=== PATIENT | female | born 1995 | race Caucasian/White ===

== ENCOUNTER 2017-04-04 23:38 | Inpatient (IN) | payer OTHER ==
[~2017-04-04] VITALS: Ht 167.6 cm; Wt 54.8 kg
[2017-04-04] MEDS ORDERED: ONDANSETRON INJ 2 MG/ML 2 ML VIAL IV STA (23:49)
[2017-04-04] MEDS ORDERED: MoRPHine SULFATE 10 MG/ML CARP/VIAL IV STA (23:49)
[2017-04-04] MEDS ORDERED: MoRPHine SULFATE 2 MG/ML CARP ONE (23:55)
[2017-04-04] MEDS ORDERED: MoRPHine SULFATE 4 MG/ML 1 ML CARP\\VIAL ONE (23:55)
--- NOTE | 2017-04-04 23:57 | EMERGENCY ROOM VISIT NOTE ---
History Report prepared by Dwayne: Kashif Finley Under the Supervision of: Dr. Lorne Gardner M.D. 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 She states that she has had abdominal pain, though not this severe. She states the pain is in her epigastric region and RUQ. She currently rates her pain a 10/10 in severity. She notes nausea, vomiting, and back pain. She denies any history of gall bladder problems or gastric ulcers. She states that she had one beer this evening. She denies any leg swelling or rashes. She took Zantac and six Tums, though she vomited them back up. She regularly takes control. The patient has a history of UTI and kidney infections. She also notes a history of stomach problems, though she has not had any definite diagnoses. 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 She denies any leg swelling. Review of Systems See HPI for pertinent positives & negatives. A total of 10 systems reviewed and were otherwise negative. Past Medical & Surgical Medical Problems: (1) Kidney infection (2) Stomach problems (3) UTI (urinary tract infection) Family History FHx: cancer FHx: gallbladder disease FHx: heart disease Hypertension Kidney disease Kidney stones Social History Smoking Status: Never Smoker Smokeless Tobacco Use: No Alcohol Use: occasionally Housing Status: lives with roommate Occupation Status: student Current/Historical Medications Scheduled Control Pills ( Control Pills), 1 TAB PO DAILY Ferrous Sulfate (Iron), 325 MG PO DAILY Allergies Coded Allergies: Penicillins (Verified Allergy, Unknown, unknown, 04/04/17) Sulfa Antibiotics (Verified Allergy, Unknown, ananphylaxis, 04/04/17) Physical Exam Vital Signs Date Time Temp Pulse Resp B/P (MAP) Pulse Ox O2 Delivery O2 Flow Rate FiO2 04/05/17 00:50 82 18 109/74 100 Room Air 04/04/17 23:42 36.8 102 20 117/81 100 Room Air Physical Exam GENERAL: Patient is uncomfortable appearing and in moderate distress. crying HEENT: No acute trauma, normocephalic atraumatic, mucous membranes moist, no nasal congestion, no scleral icterus. NECK: No stridor, no adenopathy, no meningismus, trachea is midline. LUNGS: No dyspnea. Clear to auscultation and equal bilaterally. No wheeze, no rhonchi. HEART: Tachycardic. No murmurs, rubs, gallops appreciated. ABDOMEN: Soft, bowel sounds positive, no masses appreciated, no peritonitis. Moderate epigastric and RUQ tenderness to palpation. BACK: No midline tenderness, no CVA tenderness EXTREMITIES: Normal motion all extremities, no cyanosis, no edema. NEUROLOGIC: Alert and oriented, no acute motor or sensory deficits, no focal weakness, cranial nerves grossly intact. SKIN: No rash, no jaundice, no diaphoresis. Medical Decision & Procedures ER Provider Diagnostic Interpretation: Radiology results and stated below per my review and radiologist interpretation: [facility] Read: Acute Cholecystitis. Laboratory Results 04/04/17 00:08 Red Blood Count 4.40, Mean Corpuscular Volume 84.8, Mean Corpuscular Hemoglobin 27.7, Mean Corpuscular Hemoglobin Concent 32.7, Mean Platelet Volume 10.7, Neutrophils (%) (Auto) 63.4, Lymphocytes (%) (Auto) 31.8, Monocytes (%) (Auto) 3.3, Eosinophils (%) (Auto) 1.2, Basophils (%) (Auto) 0.2, Neutrophils # (Auto) 5.36, Lymphocytes # (Auto) 2.69, Monocytes # (Auto) 0.28, Eosinophils # (Auto) 0.10, Basophils # (Auto) 0.02 04/04/17 00:08 Test 04/04/17 00:08 White Blood Count 8.46 K/uL (4.8-10.8) Red Blood Count 4.40 M/uL (4.2-5.4) Hemoglobin 12.2 g/dL (12.0-16.0) Hematocrit 37.3 % (37-47) Mean Corpuscular Volume 84.8 fL (80-100) Mean Corpuscular Hemoglobin 27.7 pg (25-34) Mean Corpuscular Hemoglobin Concent 32.7 g/dl (32-36) Platelet Count 244 K/uL (130-400) Mean Platelet Volume 10.7 fL (7.4-10.4) Neutrophils (%) (Auto) 63.4 % Lymphocytes (%) (Auto) 31.8 % Monocytes (%) (Auto) 3.3 % Eosinophils (%) (Auto) 1.2 % Basophils (%) (Auto) 0.2 % Neutrophils # (Auto) 5.36 K/uL (1.4-6.5) Lymphocytes # (Auto) 2.69 K/uL (1.2-3.4) Monocytes # (Auto) 0.28 K/uL (0.11-0.59) Eosinophils # (Auto) 0.10 K/uL (0-0.5) Basophils # (Auto) 0.02 K/uL (0-0.2) RDW Standard Deviation 41.6 fL (36.4-46.3) RDW Coefficient of Variation 13.5 % (11.5-14.5) Immature Granulocyte % (Auto) 0.1 % Immature Granulocyte # (Auto) 0.01 K/uL (0.00-0.02) Anion Gap 8.0 mmol/L (3-11) Est Creatinine Clear Calc Drug Dose 90.3 ml/min Estimated GFR () 112.7 Estimated GFR (Non- 97.3 BUN/Creatinine Ratio 17.7 (10-20) Calcium Level 9.1 mg/dl (8.5-10.1) Total Bilirubin 0.3 mg/dl (0.2-1) Direct Bilirubin < 0.1 mg/dl (0-0.2) Aspartate Amino Transf (AST/SGOT) 11 U/L (15-37) Alanine Aminotransferase (ALT/SGPT) 25 U/L (12-78) Alkaline Phosphatase 46 U/L (45-117) Total Protein 7.2 gm/dl (6.4-8.2) Albumin 3.6 gm/dl (3.4-5.0) Lipase 101 U/L (73-393) Laboratory results as reviewed by me. Medications Administered Medications (Trade) Dose Ordered Sig/Alvin Route Start Time Stop Time Status Last Admin Dose Admin Ondansetron HCl (Zofran Inj) 4 mg NOW STAT IV 04/04/17 23:49 04/04/17 23:50 DC 04/05/17 00:07 4 MG Morphine Sulfate (MoRPHine SULFATE INJ) 2 mg STK-MED ONCE .ROUTE 04/04/17 23:55 04/04/17 23:56 DC 04/05/17 00:07 2 MG Morphine Sulfate (MoRPHine SULFATE INJ) 4 mg STK-MED ONCE .ROUTE 04/04/17 23:55 04/04/17 23:56 DC 04/05/17 00:07 4 MG Ondansetron HCl (Zofran Inj) 4 mg NOW STAT IV 04/05/17 00:52 04/05/17 00:53 DC 04/05/17 01:02 4 MG Morphine Sulfate (MoRPHine SULFATE INJ) 2 mg STK-MED ONCE .ROUTE 04/05/17 00:57 04/05/17 00:58 DC 04/05/17 01:02 2 MG Morphine Sulfate (MoRPHine SULFATE INJ) 4 mg STK-MED ONCE .ROUTE 04/05/17 00:57 04/05/17 00:58 DC 04/05/17 01:02 4 MG Cefoxitin Sodium 2000 mg/Dextrose 60 ml @ 120 mls/hr NOW STAT IV 04/05/17 01:09 04/05/17 01:38 DC 04/05/17 01:27 120 MLS/HR Sodium Chloride 1,000 ml @ 75 mls/hr [id number] STAT IV 04/05/17 01:16 04/05/17 02:40 DC 04/05/17 01:29 75 MLS/HR ED Course 2346: The patient was evaluated in room B12B. A complete history and physical exam was performed. 0011: I reassessed the patient at this time. She is calming down and notes the pain is improving. She reports previous CT scans of her abdomen for other abdominal pains. 0100: I reassessed the patient at this time. She notes an allergy to Keflex; she states she had a fever after taking it, though she had an abscess at the same time. 0107: I spoke with Abhi Kinney PA-C. We discussed the patients case. The patient will be further evaluated. Medical Decision Differential: Cholecystitis, Gallbladder disfunction, Hepatic Disfunction, Gastritis/PUD, Pancreatitis, Aortic Pathology, amongst other pathologies entertained. 22 yr old female arrives in quite significant discomfort with moderate epi/ruq TTP. Given IV morphine and US obtained of GB. Lab unremarkable. Needed repeat morphine secondary to return of pain. US consistent with acute Cholecystitis and likely stone in GB neck. Question of CBD dilatation, however with normal bili/LFTs. Mefoxin given for Abx coverage. findings reviewed with patient. Gen surg consulted who brought her in for planned OR in am. Medication Reconcilliation Current Medication List: was personally reviewed by me Blood Pressure Screening Patient's blood pressure: Normal blood pressure Consults Time Called: 101 Consulting Physician: Abhi Kinney PA-C Returned Call: [phone] I spoke with Abhi Kinney PA-C. We discussed the patients case. The patient will be further evaluated. Impression Primary Impression: Acute cholecystitis Scribe Attestation The scribe's documentation has been prepared under my direction and personally reviewed by me in its entirety. I confirm that the note above accurately reflects all work, treatment, procedures, and medical decision making performed by me. Departure Information Dispostion Being Evaluated By Surgeon Referrals No Doctor, Assigned (PCP) Patient Instructions My [facility]
[2017-04-05] VITALS (8 sets, daily range): BP systolic 94–110; BP diastolic 59–72; PULSE 65–88; TEMP 36.6–37; O2SAT 94–100; Ht 167.6 cm; Wt 54.8 kg
[2017-04-05 00:19] LABS: BASO % 0.2 %; BASO ABS # 0.02 K/uL (0-0.2); EOS % 1.2 %; HEMATOCRIT 37.3 % (37-47); HEMOGLOBIN 12.2 g/dL (12.0-16.0); IG# 0.01 K/uL (0.00-0.02); LYMPH % 31.8 %; LYMPH ABS # 2.69 K/uL (1.2-3.4); MEAN CELL VOLUME 84.8 fL (80-100); MEAN CORPUSCULAR HEMOGLOBIN 27.7 pg (25-34); MEAN CORPUSCULAR HGB CONC 32.7 g/dl (32-36); MEAN PLATELET VOLUME 10.7 fL (7.4-10.4); MONO % 3.3 %; MONO ABS # 0.28 K/uL (0.11-0.59); NEUT % 63.4 %; NEUT ABS # 5.36 K/uL (1.4-6.5); PLATELET COUNT 244 K/uL (130-400); RED CELL DISTRIBUTION WIDTH CV 13.5 % (11.5-14.5); RED CELL DISTRIBUTION WIDTH SD 41.6 fL (36.4-46.3); WHITE BLOOD COUNT 8.46 K/uL (4.8-10.8)
[2017-04-05 00:37] LABS: ALBUMIN 3.6 gm/dl (3.4-5.0); ALT/SGPT 25 U/L (12-78); AST/SGOT 11 U/L (15-37); BLOOD UREA NITROGEN 15 mg/dl (7-18); CALCIUM 9.1 mg/dl (8.5-10.1); CARBON DIOXIDE 24 mmol/L (21-32); CREATININE 0.86 mg/dl (0.60-1.20); GLUCOSE 100 mg/dl (70-99); LIPASE 101 U/L (73-393); POTASSIUM 3.4 mmol/L (3.5-5.1); SODIUM 137 mmol/L (136-145)
[2017-04-05 00:39] LABS: ALKALINE PHOSPHATASE 46 U/L (45-117); TOTAL PROTEIN 7.2 gm/dl (6.4-8.2)
[2017-04-05] MEDS ORDERED: ONDANSETRON INJ 2 MG/ML 2 ML VIAL IV STA (00:52)
[2017-04-05] MEDS ORDERED: MoRPHine SULFATE 10 MG/ML CARP/VIAL IV STA (00:52)
[2017-04-05] MEDS ORDERED: CEFOXITIN 2000MG/60 ML D5W IV STA (00:57)
[2017-04-05] MEDS ORDERED: MoRPHine SULFATE 2 MG/ML CARP ONE (00:57)
[2017-04-05] MEDS ORDERED: MoRPHine SULFATE 4 MG/ML 1 ML CARP\\VIAL ONE (00:57)
[2017-04-05] MEDS ORDERED: CEFOXITIN IV 2,000 MG in DEXTROSE 5% 50ML 50 ML IV STA (01:09)
[2017-04-05] MEDS ORDERED: SODIUM CHLORIDE 0.9% 1000ML 1,000 ML IV STA (01:16)
[2017-04-05] MEDS ORDERED: BCPILLS PO (01:21)
[2017-04-05] MEDS ORDERED: FERR1TAB23 PO (01:22)
[2017-04-05] MEDS ORDERED: HYDROmorphone INJ 1 MG/ML SYR IV PRN ×2 (01:30→02:30)
--- NOTE | 2017-04-05 02:16 | Medical Consult ---
Consultation Date of Consultation: Apr 05, 2017. Attending Physician: Reason for Consultation: RUQ pain History of Present Illness Patient presents to the ED tonight due to RUQ pain which started while she was on her way home from a alliance party this evening. States she ate a fatty meal and she started to have severe RUQ pain. Denies shoulder pain, but does feel some pain wrapping around to her back. States her pain is greatly improved since receiving morphine in the ED. Reports no nausea since she was given zofran here as well. Reports episodes like this in the past that subsided but not as severe. Reports she takes Tums on a regular basis and thought this pain was due to that. Reports Nausea and vomiting as well. No hematemesis. She has been moving her bowels and urinating without issue. States she takes Iron supplements and control pills but denies other medications. FHx of gallbladder disease (mother). Denies any previous abdominal surgeries. RUQ U/S reveals distended gallbladder with gallstones with one that appears non-mobile within the gallbladder neck. No gallbladder wall thickening, trace pericholecystic fluid and positive sonographic jimenez's sign. CBD mildly prominent at 7mm. No leukocytosis. LFTs WNL. Patient does have a listed allergy to penicillins however she reports that the symptoms of this allergy were just a fever while she was on penicillin for an active abscess. Past Medical/Surgical History Medical Problems: (1) Acute cholecystitis Status: Acute Family History FHx: cancer FHx: gallbladder disease FHx: heart disease Hypertension Kidney disease Kidney stones Social History Smoking Status: Never Smoker Smokeless Tobacco Use: No Housing Status: lives with roommate Occupation Status: student Allergies Coded Allergies: Penicillins (Verified Allergy, Unknown, unknown, 04/04/17) Sulfa Antibiotics (Verified Allergy, Unknown, ananphylaxis, 04/04/17) Current Inpatient Medications Current Inpatient Medications Medications (Trade) Dose Ordered Sig/Alvin Route Start Time Stop Time Status Last Admin Dose Admin Hydromorphone HCl (Dilaudid Inj) 1 mg Q30M PRN IV 04/05/17 01:30 04/19/17 01:29 Sodium Chloride 1,000 ml @ 75 mls/hr [id number] STAT IV 04/05/17 01:16 04/05/17 14:35 04/05/17 01:29 75 MLS/HR Review of Systems Constitutional: No fever, No chills Respiratory: No shortness of breath Cardiovascular: No chest pain Abdomen: + pain, + nausea, + vomiting Genitourinary - Female: No dysuria Integumentary: No color change Physical Exam Date Time Temp Pulse Resp B/P (MAP) Pulse Ox O2 Delivery O2 Flow Rate FiO2 04/05/17 00:50 82 18 109/74 100 Room Air 04/04/17 23:42 36.8 102 20 117/81 100 Room Air General Appearance: WD/WN, no apparent distress Head: normocephalic, atraumatic Eyes: funduscopic exam normal ENT: hearing grossly normal Neck: trachea midline Respiratory/Chest: lungs clear, normal breath sounds, no respiratory distress, no accessory muscle use Cardiovascular: regular rate, rhythm, no edema, no murmur Abdomen/GI: normal bowel sounds, soft, no organomegaly, no pulsatile mass, + tenderness (RUQ Mild (post morphine)) Neurologic/Psych: alert, normal mood/affect, oriented x 3 Skin: normal color, warm/dry Assessment & Plan RUQ pain, nausea and vomiting, symptomatic cholelithiasis, possible cholecystitis on RUQ U/S Based on history, PE and imaging, Gallbladder most likely etiology. Will plan for laparoscopic cholecystectomy with possible intraoperative cholangiogram possible open with Dr. Rubio tomorrow. Risks, benefits, alternatives and perioperative procedures discussed with the patient - all questions answered. Admit Med/Surg, OR Notified. NPO, IV Fluids, IV cefoxitin 2g q6h, IV pain medication PRN, IV Zofran PRN for nausea, SCDs. Will discuss findings with Dr. Rubio in AM. Please contact with questions or concerns.
[2017-04-05] MEDS ORDERED: ONDANSETRON INJ 2 MG/ML 2 ML VIAL IV PRN ×3 (02:30→13:00)
[2017-04-05] MEDS ORDERED: HYDROmorphone INJ 0.5 MG/0.5 ML SYR IV PRN (02:30)
[2017-04-05] MEDS ORDERED: ONDANSETRON INJ 2 MG/ML 2 ML VIAL ONE ×2 (03:34→10:55)
--- NOTE | 2017-04-05 06:55 | DIAGNOSTIC IMAGING REPORT ---
BILIARY ULTRASOUND CLINICAL HISTORY: Right upper quadrant abdominal pain COMPARISON STUDY: No previous studies for comparison. FINDINGS: The pancreas appears sonographically normal. No hepatic masses are visualized area there is no right-sided hydronephrosis. There are multiple gallstones present. There is trace pericholecystic fluid. There are areas of mild gallbladder wall thickening measuring up to 3.8 mm. The technologist reports a positive sonographic Houston sign. The common bile duct measures 7 mm in maximal diameter. IMPRESSION: 1. Cholelithiasis with trace pericholecystic fluid and a reported positive sonographic Houston sign. The findings may indicate acute cholecystitis. Correlation with a nuclear medicine hepatobiliary study, to assess cystic duct patency, could be obtained in follow-up as deemed clinically indicated. Electronically signed by: Ramakrishna Tabor M.D. 04/05/2017 6:53 AM Dictated Date/Time: 04/05/2017 6:51 AM
[2017-04-05] MEDS: CEFOXITIN IV 2,000 MG in DEXTROSE 5% 50ML 50 ML IV SCH ×2 (08:26→14:42)
--- NOTE | 2017-04-05 10:37 | History & Physical Bridge Note ---
H&P Re-Evaluation Bridge Note: I have examined the patient, reviewed the History & Physical and in the interval since the performance of the History & Physical I have noted the following changes of clinical significance: No changes noted we discussed her diagnosis and options. we discussed risks ( bleeding/infection/dvt/pe/injury to another organ such as bile ducts or bowel, etc...questions answered. will proceed with lap sabina.
[2017-04-05] MEDS ORDERED: MIDAZOLAM HCL 1 MG/ML 2ML VIAL ONE (10:56)
[2017-04-05] MEDS ORDERED: FENTANYL CITRATE INJ 50 MCG/1 ML 2 ML VIAL ONE ×2 (10:56→12:00)
[2017-04-05] MEDS ORDERED: CIPROFLOXACIN 400MG / 200ML D5W ONE (10:59)
[2017-04-05] MEDS ORDERED: EpINEphrine INJ 1MG/ML AMP 1 MG/ML AMP ONE (10:59)
[2017-04-05] MEDS ORDERED: BUPIVACAINE 0.5 % 5 MG/1 ML MPF 30ML VIAL ONE (10:59)
[2017-04-05] MEDS ORDERED: ATROPINE SULFATE 0.1 MG/ML 5ML SYR IV PRN (11:15)
[2017-04-05] MEDS ORDERED: SCOPOLAMINE 1.5 MG TDSY TD SCH (11:15)
[2017-04-05] MEDS ORDERED: SCOPOLAMINE 1.5 MG TDSY TD ONE (11:15)
[2017-04-05] MEDS ORDERED: EpHEDrine SULFATE INJ 50 MG/ML AMP IV PRN (11:15)
[2017-04-05] MEDS ORDERED: LIDOCAINE HCL 2% 2 ML VIAL (20MG/ML) ONE (11:54)
[2017-04-05] MEDS ORDERED: PROPOFOL IV EMULSION 10 MG/ML 20 ML VIAL IV ONE (11:54)
[2017-04-05] MEDS ORDERED: SUCCINYLCHOLINE CHLORIDE 20 MG/ML 10 ML VIAL IV ONE (11:54)
[2017-04-05] MEDS ORDERED: NEOSTIGMINE METHYLSULFATE 5 MG/5 ML SYR ONE (12:00)
[2017-04-05] MEDS ORDERED: GLYCOPYRROLATE INJ 0.2 MG/ML VIAL ONE (12:00)
[2017-04-05] MEDS ORDERED: DEXAMETHASONE SOD INJ 4 MG/ML VIAL ONE (12:31)
[2017-04-05] MEDS ORDERED: KETOROLAC TROMETHAMINE 30 MG/ML VIAL ONE (12:31)
[2017-04-05] MEDS ORDERED: PHENYLEPHRINE 100MCG/ML 5ML SYR ONE (12:39)
--- NOTE | 2017-04-05 12:57 | [facility] Operative Report ---
Operative Report Operative Date Apr 05, 2017. Pre-Operative Diagnosis Acute Cholecystitis Post-Operative Diagnosis Acute Cholecystitis Procedure(s) Performed Laparoscopic Cholecystectomy Surgeon Dr. Shayy Rubio Rn Trauma Surgeon(s) Shayy Echevarria PA-C Estimated Blood Loss 5mL Findings gallstones with acutely inflammed gallbladder Specimens A: Gallbladder & contents Anesthesia get Complication(s) None Disposition Recovery Room / PACU Description of Procedure After informed consent was obtained patient was taken the operating room and placed in supine position. After successful intubation the abdomen was sterilely prepped and draped in usual fashion. I made a periumbilical incision with 11 blade scalpel and carried down through the soft tissue using electrocautery. Anterior rectus fascia was opened using electrocautery and 2 # 0 Vicryl stay sutures were placed. Peritoneum was elevated with hemostats and incised under direct vision using a Metzenbaum scissor. A finger sweep was performed and a 12 mm Cohen trocar was placed. The abdomen was insufflated to 18 mmHg. The laparoscope was inserted and the abdomen examined 360. A subxiphoid 5 mm port and 2 right upper quadrant 5 mm ports were placed under direct vision. Patient was placed reverse Trendelenburg position slightly airplaned to the left. The gallbladder was acutely inflamed. We were able to grasp it and elevated superiorly and laterally. A [place] dissector was used to take down adhesions around the neck of the gallbladder. The cystic duct was identified and skeletonized. It was clipped twice proximally and once distally and transected using a laparoscopic scissor. In similar fashion the cystic artery was identified skeletonized clipped and divided as well. Electrocautery was used to remove the gallbladder from the gallbladder fossa. It was removed intact and placed into an Endo Catch bag. Any small bleeding points on the gallbladder fossa were controlled using electrocautery. A thorough irrigation was performed. There was adequate hemostasis and no evidence of a bile leak at the end of the procedure. I did look around the remainder of the abdomen and saw no other gross abnormalities. The umbilical incision had to be extended slightly to incorporate the large gallstone. We were able to get it out again intact as well as removed the remainder the trochars. After the abdomen was desufflated the fascia of the umbilical port was closed using 0 Vicryl figure 8 fashion. All the wounds were irrigated and closed using 4-0 Monocryl. Marcaine was injected around the incisions for postoperative analgesia. skin glue and OpSites were used for dressings. The patient was awakened, extubated and transferred recovery in stable condition My physician's wet process miller head assistant was present throughout the entire case. She helped prepped the patient as well as help with exposure for trocar placement. She retracted the gallbladder throughout the case and also helped with wound closure I attest to the content of the Intraoperative Record and any orders documented therein. Any exceptions are noted below.
[2017-04-05] MEDS ORDERED: LACTATED RINGER'S 1000ML 1,000 ML IV SCH (12:58)
[2017-04-05] MEDS ORDERED: MoRPHine SULFATE 2 MG/ML CARP IV PRN ×2 (13:00)
[2017-04-05] MEDS ORDERED: HYDROCODONE/ACETAMOPHEN 5/325MG TAB PO PRN ×2 (13:00)
[2017-04-05] MEDS ORDERED: MoRPHine SULFATE 4 MG/ML 1 ML CARP\\VIAL IV PRN (13:00)
[2017-04-05] MEDS ORDERED: ROCURONIUM BROMIDE 10 MG/ML 5 ML VIAL IV ONE (13:13)
[2017-04-05] MEDS: FENTANYL CITRATE INJ 50 MCG/1 ML 2 ML VIAL IV PRN ×4 (13:28→13:45)
[2017-04-05] MEDS: HYDROmorphone INJ 1 MG/ML SYR IV PRN ×2 (13:49→13:56)
--- NOTE | 2017-04-05 13:51 | Anesthesiology Progress Note ---
Anesthesia Post Op Note Date & Time Apr 05, 2017 at 13:50 Vital Signs Pain Intensity: 4 Vital Signs Past 12 Hours Date Time Temp Pulse Resp B/P (MAP) Pulse Ox O2 Delivery O2 Flow Rate FiO2 04/05/17 13:40 72 20 113/70 100 Nasal Cannula 2 04/05/17 13:30 83 20 110/70 100 Nasal Cannula 2 04/05/17 13:20 83 20 112/74 100 Oxymask 10 04/05/17 13:10 67 16 105/63 100 Oxymask 10 04/05/17 13:04 36.5 71 16 102/59 100 Oxymask 10 04/05/17 07:30 Room Air 04/05/17 06:56 36.9 88 15 94/59 (71) 100 Room Air 04/05/17 03:20 Room Air 04/05/17 03:20 36.6 82 16 109/72 99 Room Air 04/05/17 02:28 88 20 114/68 100 Room Air Notes Mental Status: alert / awake / arousable, participated in evaluation Pt Amnestic to Procedure: Yes Nausea / Vomiting: adequately controlled Pain: adequately controlled Airway Patency, RR, SpO2: stable & adequate BP & HR: stable & adequate Hydration State: stable & adequate Anesthetic Complications: no major complications apparent
[2017-04-05] MEDS ORDERED: HYDR-5688 PO (14:31)
--- NOTE | 2017-04-05 14:33 | Discharge Instructions ---
Discharge Instructions Date of Service Apr 05, 2017. Admission Reason for Admission: Acute Cholecystitis Discharge Discharge Diagnosis / Problem: laparoscopic cholecystectomy Discharge Goals Goal(s): Decrease discomfort Activity Recommendations Activity Limitations: as noted below Lifting Limitations: no more than 10 pounds Shower/Bathe: no limitations Driving or Machine Use: resume 3 days after discharge . Instructions / Follow-Up Instructions / Follow-Up Dr. Rubio in 2 weeks, call [phone] to schedule, [address] Current Hospital Diet Patient's current hospital diet: Clear Liquid Diet Discharge Diet Recommended Diet: Low Fat Diet (for a few days) Procedures Procedures Performed: Laparoscopic Cholecystectomy Pending Studies Studies pending at discharge: no Medical Emergencies . Who to Call and When: Medical Emergencies: If at any time you feel your situation is an emergency, please call 911 immediately. . Non-Emergent Contact Non-Emergency issues call your: Surgeon Call Non-Emergent contact if: you have a fever, temperature is above 101.5, your pain is not controlled, you have any medication questions . "Provider Documentation" section prepared by Jeremie Oneill. . VTE Core Measure Inpt VTE Proph given/why not?: SCD's [place] Drug Monitoring Program Search Results: no issues identified
[2017-04-05] MEDS ORDERED: CHECK SCOPOLAMINE PATCH PLACEMENT SCH (16:00)
--- NOTE | 2017-04-10 10:53 | Discharge Summary ---
Discharge Summary Date of Service Apr 10, 2017. Admission Date/Reason Apr 05, 2017 at 02:26 Acute Cholecystitis. Discharge Date/Disposition Apr 05, 2017 Home Diagnosis Principal Diagnosis: Acute Cholecystitis Procedure(s) Performed Laparoscopic Cholecystectomy Medication Reconciliation New Medications: Hydrocodone/Acetaminophen 5MG/325MG ([place] 5MG/325MG) Tab 1-2 TABLET PO Q4H PRN for Pain, #30 TAB Continued Medications: Control Pills ( Control Pills) Tab 1 TAB PO DAILY, TAB Ferrous Sulfate (Iron) 325 Mg Tab 325 MG PO DAILY Admission Physical Exam As per Admitting History & Physical. Hospital Course 22-year-old female presented to [facility] ED on 04/04 for complaints of RUQ pain that developed earlier in the evening. Patient reported mild nausea as well. RUQ U/ S reveals distended gallbladder with gallstones with one that appears non- mobile within the gallbladder neck. No gallbladder wall thickening, trace pericholecystic fluid and positive sonographic Houston's sign. CBD mildly prominent at 7mm. No leukocytosis. LFTs WNL. Patient was admitted for planned Laparoscopic Cholecystectomy in the AM with Dr. Rubio. Laparoscopic Cholecystectomy was performed on 04/05/2017. Patient was transferred back up to [facility] floor. Post-operatively vital signs remained stable, patient remained afebrile. She tolerated her diet and was able to void without difficulty. Patient demonstrated readiness for discharge and was discharged later in the evening. Verbal and written discharge instructions were provided to patient. Patient to follow-up with Dr. Rubio in the office in 1-2 weeks. Discharge Instructions Please refer to the electronic Patient Visit Report (Discharge Instructions) for additional information.
== END 2017-04-05 19:40 | disposition home or self-care (01) | DRG 419 ==
LOC: C.EDB 23:39 → C.MSN 04-05 02:26 → ENRESERV 04-05 02:40
PROVIDERS: ADMIT Surgery; ATTEND Surgery
PROC: 0FT44ZZ Resection of Gallbladder, Percutaneous Endoscopic Approach (ICD-10-PCS; principal; 2017-04-05 08:30)
DX: K80.00 Calculus of gallbladder with acute cholecystitis without obstruction (principal); Z83.79 Family history of other diseases of the digestive system; Z88.0 Allergy status to penicillin; Z88.2 Allergy status to sulfonamides